=== PATIENT | male | born 1955 | race Two or more races ===

== ENCOUNTER 2016-07-01 16:34 | Emergency (ER) | payer OTHER ==
[~2016-07-01] VITALS: Ht 172.7 cm; Wt 83.0 kg
[2016-07-01 17:05] VITALS: BP 178/120
[2016-07-01] MEDS ORDERED: KETOROLAC TROMETH 60MG/2ML VIAL IM ONE (18:00)
== END 2016-07-01 18:23 | disposition home or self-care (01) ==
LOC: ER 16:52
DX: S06.9X9A Unspecified intracranial injury with loss of consciousness of unspecified duration, initial encounter (principal); S46.911A Strain of unspecified muscle, fascia and tendon at shoulder and upper arm level, right arm, initial encounter; S63.501A Unspecified sprain of right wrist, initial encounter; I10 Essential (primary) hypertension; R51 Headache; W01.0XXA Fall on same level from slipping, tripping and stumbling without subsequent striking against object, initial encounter; Y93.89 Activity, other specified; Y92.89 Other specified places as the place of occurrence of the external cause; Y99.8 Other external cause status
CPT/HCPCS: 70450; 73030; 73080; 73100; 96372; 99284; J1885; 73070